=== PATIENT | female | born 1975 ===

== ENCOUNTER → 2018-06-04 | Emergency (ER) | payer OTHER ==
[~2018-06-04] VITALS: Ht 162.6 cm; Wt 65.8 kg
[~2018-06-04] MED LIST: ALBUTEROL0.63 MG/3 IH; MEDROL4 MG PO; PHENERGAN50 MG; PROMETHAZINE W118 ML PO; SINGULAIR10 MG; SINGULAIR10 MG PO; SYMBICORT 16010.2 GM IH; TUSSI-PRES LIQ118 ML; TUSSIONEX PENN115 ML PO; ZITHROMAX500 MG PO; [UNRECOGNIZED DRUG - CODE]; [UNRECOGNIZED DRUG - OTHER]
== END | disposition home or self-care (01) ==
LOC: ER 01:10
DX: J40 Bronchitis, not specified as acute or chronic (principal)

== ENCOUNTER 2020-12-30 22:16 | Emergency (ER) | payer OTHER ==
[~2020-12-30] VITALS: Ht 162.6 cm; Wt 72.6 kg
[2020-12-30] MEDS ORDERED: WAL-ZYR10 MG PO (22:24)
[2020-12-31] MEDS ORDERED: MEDROLPACK PO (00:08)
[2020-12-31] MEDS ORDERED: NORFLEX100MG PO (00:08)
== END 2020-12-31 00:20 | disposition home or self-care (01) ==
LOC: ER 22:16
DX: M25.512 Pain in left shoulder (principal); M79.622 Pain in left upper arm